=== PATIENT | female | born 1950 | race Caucasian/White ===

== ENCOUNTER 2024-01-10 16:02 | Emergency (ER) | payer MEDICARE, OTHER, SELFPAY ==
[2024-01-10 16:05] VITALS: BP 173/72
[2024-01-10 16:32] LABS: % Basophils 0.6 % (0-2); % Eosinophils 2.9 % (0-6); % Immature Granulocytes 0.4 % (0-0.5); % Lymphocytes 18.7 % (20.5-51.1); % Monocytes 2.4 % (1.7-9.3); Absolute Basophils 0.1 10^3/uL (0-0.2); Absolute Eosinophils 0.3 10^3/uL (0-0.7); Absolute Lymphocytes 1.9 10^3/uL (1.2-3.4); Absolute Monocytes 0.2 10^3/uL (0.1-0.6); Absolute Neutrophils 7.6 10^3/uL (1.4-6.5); Hematocrit 26.5 % (37.0-47.0); Hemoglobin 8.7 g/dL (12.0-16.0); Mean Corp Hgb Conc. 32.8 g/dL (33.0-37.0); Mean Corpuscular Hgb 29.3 pg (27.0-31.0); Mean Corpuscular Volume 89.2 fL (81.0-99.0); Mean Platelet Volume 9.7 fL (7.4-10.4); Nucleated Red Blood Cells % 0 %; Platelet Count 272 10^3/uL (130-400); Red Blood Cell Count 2.97 10^6/uL (4.20-5.40); Red Cell Dist. Width 14.2 % (11.5-14.5); White Blood Cell Count 10.1 10^3/uL (4.8-10.8)
[2024-01-10 16:53] LABS: ALT (SGPT) 13 U/L (0-35); AST (SGOT) 32 U/L (14-36); Albumin 3.5 g/dl (3.5-5.0); Alkaline Phosphatase 92 U/L (38-126); Blood Urea Nitrogen 28 mg/dl (7-17); Calcium 8.9 mg/dl (8.4-10.2); Carbon Dioxide 18 mmol/L (22-30); Chloride 110 mmol/L (98-107); Glucose 177 mg/dl (70-99); Potassium 3.7 mmol/L (3.5-5.1); Sodium 138 mmol/L (135-145); Total Bilirubin 0.4 mg/dl (0.2-1.3); Total Protein 6.8 g/dl (6.3-8.2); eGFR 34.27
[2024-01-10 16:57] LABS: NT-proBNP 1720 pg/ml; Troponin I < 0.012 ng/ml
[2024-01-10 18:22] VITALS: BP 158/61
[2024-01-10 19:00] VITALS: BP 178/70
--- NOTE | 2024-01-10 19:07 | ED.GENMED ---
History of Present Illness
General
Chief Complaint: Swelling
Source: patient
Exam Limitations: none
Time Seen by Provider: 01/10/24 18:22
History of Present Illness
History of Present Illness:
This is a 73 year old female that comes in with c/o bilateral lower leg swelling. States that she is here form [place] and her legs started with swelling last week when she was on the plane. States that they just are not coming down. Denies any
fever, chills, chest pain, SOB, abd pain, nausea, vomiting, diarrhea, headache, dizziness, urinary burning.
Past History
Past History
ED Past Medical History: Asthma, GERD, NIDDM (No medications at this time) and Other (Crohn's Stage III kidney disease)
ED Past Surgical History: Bowel resection, Cholecystectomy, Orthopedic (Right knee surgery, ) and Other (Cataracts, Fissure repair, )
Social History
Tobacco: Former smoker
Alcohol: Occasional
Personal:
Living: alone
Review of Systems
Review of Systems
All Other Systems: ROS reviewed and negative except as documented in HPI and ROS
Constitutional: Reports no symptoms; Denies fever or chills
EENT: Reports no symptoms
Respiratory: Reports no symptoms; Denies cough or trouble breathing
Cardiac: Reports no symptoms; Denies chest pain
ABD/GI: Reports no symptoms; Denies abdominal pain, nausea, vomiting or diarrhea
: Reports no symptoms; Denies dysuria, frequency or urgency
Musculoskeletal: Reports edema (bilateral lower leg edema)
Skin: Reports no symptoms
Neurological: Reports no symptoms; Denies dizzy or headache
Psychiatric: Reports no symptoms
Phy Exam
General Physical Exam
General Presentation: no apparent distress
General age: appears stated age
General Skin: warm and dry
General Habitus: elderly
General Mental: alert
General Hydration: appears well hydrated
ENT Exam
ENT Exam: TM's normal, pharynx normal and neck supple
Eye Exam
Eye Exam: EOMI
Cardiovascular Exam
Cardiovascular Exam: regular rate/rhythm, normal peripheral pulses and other (Murmur)
Pulmonary Exam
Pulmonary Exam: no respiratory distress, no rales, chest non tender, no crackles, no rhonchi, no cough and other (faint exp wheezing noted)
Gastrointestinal Exam
Gastrointestinal Exam: normal bowel sounds, non tender, soft, no organomegaly, no pulsatile mass and non distended
Musculoskeletal Exam
Musculoskeletal Exam: full ROM and edema (bilateral feet and lower leg edema +1 pitting, Negative for any redness)
Skin Exam
Skin Exam: normal color, warm/dry, no rash and no petechia
Psychiatric Exam
Psychiatric Exam: normal mood/affect
Scores
Heart Failure Risk
Heart Failure Risk Score: Yes
History of Stroke or TIA: No
History of intubation for respiratory distress: No
Heart rate on ED arrival >/= 110: No
SaO2 <90% on arrival on room air: No
HR >/=110 during 3min walk test (or too ill to perform test): No
ECG has acute ischemic changes: No
Urea >/=12mmol/L (BUN 33.6mg/dL): No
Serum CO2>/=35mmol/L: No
Troponin I or T elevated to OK Level (0.4mg/dL): No
NT-proBNP >/=5,000ng/L (5,000pg/ml): No
HF Risk Score: 0
Admission Status: LOW RISK 2.8% Consider discharge to home with f/u visit to PCP/[facility]
Course
Orders/Labs/Results
Orders:
Orders
01/10/24 16:14
EKG [Electrocardiogram (*1)] Urgent
Reason for Study: Other
Other Reason for Exam: edema
01/10/24 16:15
EKG- Treatment ONCE
01/10/24 16:24
Complete Blood Count/With Diff Urgent
Comprehensive Metabolic Panel Urgent
NT-proBNP Urgent
Troponin I Urgent
01/10/24 19:07
US Legs, Bilateral [US Periph Venous LOWER Ext Azeem] Urgent
Comment:
Reason For Exam: Lower leg swelling
01/10/24 19:13
CR Chest - 2 Views Urgent
Comment:
Reason For Exam: Bilateral leg edema Elevated Pro-BNP
01/10/24 20:27
Furosemide [Lasix] 20 mg PO NOW STA
Potassium Chloride Powder [Klor-Con] 20 meq PO NOW STA
01/10/24 20:[address] Non Medication Order As Directed
Physician Order: Knee high TEDS
Above order entered?: Yes
Abnormal Lab Results
01/10/24
16:24
RBC 2.97 L 10^6/uL
(4.20-5.40)
Hgb 8.7 L g/dL
(12.0-16.0)
Hct 26.5 L %
(37.0-47.0)
MCHC 32.8 L g/dL
(33.0-37.0)
Absolute Neuts (auto) 7.6 H 10^3/uL
(1.4-6.5)
Lymphocytes % 18.7 L %
(20.5-51.1)
Chloride 110 H mmol/L
(98-107)
Carbon Dioxide 18 L mmol/L
(22-30)
BUN 28 H mg/dl
(7-17)
Creatinine 1.6 H mg/dL
(0.6-1.0)
Glucose 177 H mg/dl
(70-99)
01/10/24 16:24
01/10/24 16:24
H/H low. Chlorided elevated. Carbon dioxide low. Chronic renal insufficiency, Hyperglycemia. Troponin <0.012, Pro-BNP 1720
Vital Signs
Initial and Last Documented VS:
Initial Vital Signs
Temp Pulse Resp BP Pulse Ox
98.1 F 69 18 173/72 99
01/10/24 16:05 01/10/24 16:05 01/10/24 16:05 01/10/24 16:05 01/10/24 16:05
Last Documented Vital Signs
Temp Pulse Resp BP Pulse Ox
98.1 F 66 21 141/47 98
01/10/24 16:05 01/10/24 20:47 01/10/24 20:45 01/10/24 20:47 01/10/24 20:45
MDM/Problems Addressed
Differential Diagnosis Includes:
CHF, DVT, Dependent edema
MDM/Problems Addressed:
This is a 73 year old female that comes in with c/o bilateral lower leg swelling. States that this started a week ago when she came form [place].
Will get chest x-ray, labs and US bilateral lower legs.
Back into see patient. Explained that her US is negative for DVT's. Will give patient one dose of Lasix here and Potassium and have patient use Knee high JOHN's. Patient to follow up with the PCP when she gets back to [place].
Chronic conditions affecting care: Kidney disease
Acute Exacerbation and/or Progression of Chronic Illness: Kidney disease
*Radiology
Radiology exam reviewed: preliminary read by ED provider (Chest- Negative for active disease. ) and radiology read reviewed (US-No sonographic evidence for lower extremity venous thrombosis. Severe diffuse edema throughout the subcutaneous fat of
both lower extremities,. Chest-Mild interstitial cardiogenic pulmonary edema. No radiographic evidence for pleural effusion. )
*Pulse Oximetry
Patient hypoxic: no
*EKG
Interpreted by ED Provider?: Yes
Heart Rate: 64
Rate: normal
Rhythm: sinus
Gilbert: left axis deviation
Interval: normal interval
QRS Pattern: normal QRS
Ischemia: no ischemia
*Pulmonary Fellow Interpretation
Rate: normal
Heart Rate: 66
Rhythm: sinus
*Critical Care Note
Total Time (30-74mins, 75-104mins- exclusive of procedures): Not Applicable
ED Attending Note
-
Portions of this chart may have been created with voice recognition software.� Occasional wrong word or��sound alike� substitutions may have occurred due to the inherent limitations of voice recognition software.
Discharge Plan
Departure
Patient Disposition: Home (Routine Discharge)
Date of Disposition: 01/10/24
Time of Disposition: 20:29
Patient with high blood pressure during this ER visit?: No
Condition: Good
Covid-19: Not Applicable
Discharge Problem:
Dependent edema
Instructions: Dependent Edema (DC), BLOOD PRESSURE
Prescriptions:
No Action
amlodipine 5 mg Tablet
10 mg
balsalazide 750 mg Capsule
2,250 mg PO
Vitamin Daily Liquid
gabapentin 600 mg Tablet
600 mg PO DAILY
magnesium gluconate 500 mg Tablet
500 mg PO TID
sodium bicarbonate 650 mg Tablet
1,300 mg PO DAILY
propranolol-hydrochlorothiazid 40-25 mg Tablet
1 tab PO BID
folic acid 1 mg Tablet
1 mg PO DAILY
dexlansoprazole [Dexilant] 60 mg Capsule,Biphase Delayed Releas
60 mg PO DAILY
methotrexate 2.5 mg/mL Solution
2.5 mg PO QWEEK
ferrous sulfate 325 mg (65 mg iron) Tablet
325 mg PO DAILY
Patient Comments:
Taken everyother day
fludrocortisone 0.1 mg Tablet
0.1 mg PO DAILY
zinc 50 mg Capsule
50 mg PO DAILY
Florastor 50 mg Capsule
PO
famotidine 20 mg Tablet
20 mg PO DAILY PRN (Reason: Acid)
aspirin 81 mg Tablet
81 mg PO DAILY
vitamin B complex [Super B Complex] Capsule
1 cap PO DAILY
levothyroxine 25 mcg Capsule
25 mcg PO DAILY
Activity Restrictions/Additional Instructions:
As discussed, your blood work shows your chronic renal insufficiency. Your US is negative for any blood clots but there is the edema of the skin. This is most likely a dependent edema. You have been given oral Lasix here with Potassium. Please use
the knee high TEDS when you are up walking around. Follow up with the family doctor for further evaluation when you get home. IF YOU HAVE SHORTNESS OR BREATH, INCREASED SWELLING, CHEST PAIN, OR YOU HAVE ANY OTHER CONCERNS PLEASE RETURN TO THE
EMERGENCY ROOM.
Interventions
Interventions:
*Risk Screen - Suicide Last Done: 01/10/24 16:05
*General Assessment Last Done: 01/10/24 16:05
*Neglect/Abuse Screening Last Done: 01/10/24 16:05
ED- Fall Risk Assessment Last Done: 01/10/24 20:30
*ED COVID-19 Vaccine History Last Done: 01/10/24 21:12
*Nursing Disposition Last Done: 01/10/24 21:12
ED- Cardiac Assessment Last Done: 01/10/24 18:29
ED- Pulmonary Assessment Last Done: 01/10/24 18:29
ED-Skin Assessment Last Done: 01/10/24 20:30
Discharge Date and Time
Discharge Date/Time: 01/10/24 21:13
Print Language: HUNGARIAN
[2024-01-10 20:19] VITALS: BP 141/47
[2024-01-10] MEDS: LASIX 20 MG PO (20:47)
[2024-01-10] MEDS: KLOR-CON 20 MEQ PO (20:48)
== END 2024-01-10 21:13 | disposition home or self-care (01) ==
LOC: EMR 16:02
PROVIDERS: Student in an Organized Health Care Education/Training Program; EMERGENCY PHYSICIAN Emergency Medicine
DX: R60.0 Localized edema (principal); K21.9 Gastro-esophageal reflux disease without esophagitis; J45.909 Unspecified asthma, uncomplicated; K50.90 Crohn's disease, unspecified, without complications; E11.22 Type 2 diabetes mellitus with diabetic chronic kidney disease; N18.30 Chronic kidney disease, stage 3 unspecified; Z79.82 Long term (current) use of aspirin; Z87.891 Personal history of nicotine dependence; Z90.49 Acquired absence of other specified parts of digestive tract; Z98.0 Intestinal bypass and anastomosis status; Z88.0 Allergy status to penicillin; Z88.8 Allergy status to other drugs, medicaments and biological substances
CPT/HCPCS: 99284; 71046; 80053; 83880; 84484; 85025; 93005; 93970